=== PATIENT | male | born 1995 | race Hispanic/Latino ===

== ENCOUNTER 2023-12-27 20:51 | Emergency (ER) | payer OTHER, SELFPAY ==
[2023-12-27 20:55] VITALS: BP 113/72
[2023-12-27 21:04] VITALS: BMI 30.4
[2023-12-27 21:18] LABS: % Eosinophils 6.3 % (0-6); % Immature Granulocytes 0.2 % (0-0.5); % Lymphocytes 35.2 % (20.5-51.1); % Monocytes 9.7 % (1.7-9.3); % Neutrophils 47.6 % (42.2-75.2); Absolute Basophils 0.1 10^3/uL (0-0.2); Absolute Eosinophils 0.3 10^3/uL (0-0.7); Absolute Lymphocytes 1.7 10^3/uL (1.2-3.4); Absolute Monocytes 0.5 10^3/uL (0.1-0.6); Absolute Neutrophils 2.4 10^3/uL (1.4-6.5); Hemoglobin 10.8 g/dL (13.0-18.0); Mean Corpuscular Hgb 29.2 pg (27.0-31.0); Mean Corpuscular Volume 81.1 fL (80.0-94.0); Mean Platelet Volume 9.7 fL (7.4-10.4); Nucleated Red Blood Cells % 0 % (-); Platelet Count 289 10^3/uL (130-400)
[2023-12-27 21:34] LABS: ALT (SGPT) 23 U/L (0-50); AST (SGOT) 34 U/L (17-59); Albumin 4.4 g/dl (3.5-5.0); Alkaline Phosphatase 57 U/L (38-126); Blood Urea Nitrogen 14 mg/dl (9-20); Calcium 9.7 mg/dl (8.4-10.2); Carbon Dioxide 26 mmol/L (22-30); Chloride 100 mmol/L (98-107); Estimated Creatinine Clearance 111 ml/min; Glucose 114 mg/dl (70-99); Potassium 4.2 mmol/L (3.5-5.1); Sodium 138 mmol/L (135-145); Total Bilirubin 0.2 mg/dl (0.2-1.3); Total Protein 7.5 g/dl (6.3-8.2); eGFR > 60.00
--- NOTE | 2023-12-27 21:52 | ED.GENMED ---
History of Present Illness
General
Chief Complaint: Change in Mental Status
Time Seen by Provider: 12/27/23 21:08
History of Present Illness
History of Present Illness:
28-year-old male without significant past medical history presenting from correction[facility] facility for change in mental status. Patient arrives with medics and [employer] guards, note prior to arrival, patient seemed lethargic. Medics noted dilated
pupils on their arrival, administered Narcan without response. They subsequently gave fluids. On arrival, report the patient is more responsive. Patient denies any ingestion of drugs. He denies any present complaint such as chest pain,
difficulty breathing, abdominal pain. 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 Denies difficulty swallowing. Denies any additional ingestion. Denies additional acute
medical complaints
Phy Exam
Physical Exam
Physical Exam:
General: Well-appearing, no clinical signs of dehydration, nontoxic and in no acute distress
HEENT: protecting airway, pupils equal and reactive bilaterally, no oropharyngeal swelling or edema
Neck: appears supple
CV: Normal heart rate, regular rhythm
Resp: No accessory muscle use, no increased work of breathing, lungs clear to auscultation bilaterally
Abd: Soft and non-distended, no tenderness to palpation
Extremities: No deformities, no swelling, no erythema
Neuro: alert, no focal neurologic deficit
: deferred
Rectal: deferred
Psych: Normal affect
Skin: Intact
Course
Orders/Labs/Results
Orders:
Orders
12/27/23 21:12
Add On- LAB Urgent
Tests Added?: tylenol and salicylate level
Acetaminophen Urgent
Comment: ADD ON
Complete Blood Count/With Diff Urgent
Comprehensive Metabolic Panel Urgent
Salicylate Urgent
Comment: ADD ON
Urine Drug Abuse Screen Urgent
12/27/23 21:55
Electrocardiogram (*1) Stat
Reason for Study: QTc Monitoring
Electrocardiogram (*1) Urgent
EKG- Treatment ONCE
Abnormal Lab Results
12/27/23
21:12
RBC 3.70 L 10^6/uL
(4.70-6.10)
Hgb 10.8 L g/dL
(13.0-18.0)
Hct 30.0 L %
(39.0-52.0)
Monocytes % 9.7 H %
(1.7-9.3)
Eosinophils % 6.3 H %
(0-6)
Glucose 114 H mg/dl
(70-99)
Salicylates < 1.0 L mg/dl
(2.0-20.0)
Acetaminophen < 10 L ug/ml
(10-30)
12/27/23 21:12
12/27/23 21:12
Vital Signs
Initial and Last Documented VS:
Initial Vital Signs
Temp Pulse Resp BP Pulse Ox
98.4 F 77 12 113/72 96
12/27/23 20:55 12/27/23 20:55 12/27/23 20:55 12/27/23 20:55 12/27/23 20:55
Last Documented Vital Signs
Temp Pulse Resp BP Pulse Ox
98.4 F 70 12 104/86 96
12/27/23 20:55 12/28/23 00:00 12/27/23 20:55 12/28/23 00:00 12/27/23 22:00
MDM/Problems Addressed
MDM/Problems Addressed:
28-year-old male without significant past medical history presenting for change in mental status from correctional facility. Vital signs are normal.
Patient is well-appearing on examination, nontoxic. He is awake, alert, oriented. No focal neurologic deficits. Patient answering questions appropriately. No present toxidrome symptoms. Patient afebrile, no systemic symptoms with lower
suspicion for infectious process. No focal neurologic deficits, without concern for central neurologic process. Unclear etiology of patient's preceding symptoms. However at this time patient is asymptomatic and hemodynamically stable. Will
screen with laboratory analysis and EKG. 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 pH of this chemical is 6.5-7.5. Will discuss with poison control
22:00 -Per poison control, recommending 4-hour observation, p.o. trial, and monitoring for nausea and vomiting, with plan for supportive therapy if able to tolerate p.o. after period of observation
01:00 -patient with 4-hour observation period, tolerated p.o. without difficulty. No observed vomiting. Remains hemodynamically stable, normal laboratory analysis. Feel stable for discharge. Return precautions discussed and patient verbalized
understanding
*Critical Care Note
Total Time (30-74mins, 75-104mins- exclusive of procedures): Not Applicable
ED Attending Note
-
Portions of this chart may have been created with voice recognition software.� Occasional wrong word or��sound alike� substitutions may have occurred due to the inherent limitations of voice recognition software.
Discharge Plan
Departure
Prescriptions:
No Action
losartan [Cozaar] 50 mg Tablet
50 mg PO DAILY
olanzapine 5 mg Tablet
5 mg PO BID
nortriptyline 25 mg Capsule
25 mg PO HS
amlodipine 10 mg Tablet
10 mg PO DAILY
ibuprofen 400 mg Tablet
400 mg PO BID PRN (Reason: pain)
omeprazole 20 mg Capsule,Delayed Release(Dr/Ec)
20 mg PO HS
sertraline 50 mg Tablet
75 mg PO DAILY
Sublocade 300 mg/1.5 mL Solution, Extended Rel Syringe
300 mg SC QMONTH
albuterol sulfate
0.5 % inhalation QIDPRN PRN (Reason: sob)
Referrals:
UNKNOWN - PT NOT,[facility] [Family Provider] -
Interventions
Interventions:
*Risk Screen - Suicide Last Done: 12/27/23 20:55
*General Assessment Last Done: 12/27/23 20:55
*Neglect/Abuse Screening Last Done: 12/27/23 20:55
ED- Fall Risk Assessment Last Done: 12/27/23 21:13
*ED COVID-19 Vaccine History Last Done: 12/27/23 20:55
ED- Pulmonary Assessment Last Done: 12/27/23 21:13
ED- Neurological Assessment Last Done: 12/27/23 21:13
ED- Cardiac Assessment Last Done: 12/27/23 21:13
Discharge Date and Time
Print Language: DOMINICAN
[2023-12-27 21:54] LABS: Acetaminophen < 10 ug/ml (10-30); Salicylate < 1.0 mg/dl (2.0-20.0)
[2023-12-27 22:00] VITALS: BP 108/75
[2023-12-27 23:00] VITALS: BP 115/78
[2023-12-28] VITALS: BP 104/86
[2023-12-28 01:00] VITALS: BP 112/76
== END 2023-12-28 01:25 ==
LOC: EMR 20:51
PROVIDERS: EMERGENCY PHYSICIAN Student in an Organized Health Care Education/Training Program
DX: R41.82 Altered mental status, unspecified (principal)
CPT/HCPCS: 99284; 80053; 80143; 80179; 85025; 93005

== ENCOUNTER 2024-01-21 18:53 | Emergency (ER) | payer OTHER, SELFPAY ==
[2024-01-21 18:55] VITALS: BMI 31.3
[2024-01-21 18:58] VITALS: BP 118/70
[2024-01-21 19:00] VITALS: BP 101/82
[2024-01-21 20:00] VITALS: BP 121/73
--- NOTE | 2024-01-21 20:25 | ED.GENMED ---
History of Present Illness
General
Chief Complaint: Blood Pressure Problem
Source: patient and other ([employer] guards)
Time Seen by Provider: 01/21/24 19:14
History of Present Illness
History of Present Illness:
28-year-old male who presents from [facility]. Patient states 'I fell out'. He states he thinks it was related to his blood pressure. There is a report that maybe he was given Narcan but snf guards are unable to confirm. [employer]-Term
guards also states that there was a story that he was in someone else's cell and possibly using drugs. The patient denies this. He currently denies any symptoms and just feels a bit tired. No chest pain. No abdominal pain. No back pain.
Past History
Past History
ED Past Medical History: HTN and Psychiatric (Schizophrenia, PTSD, depression)
Phy Exam
Physical Exam
Physical Exam:
CONSTITUTIONAL Patient alert and oriented to person, place and time. Well-appearing. Vital signs reviewed.
HEAD atraumatic, normocephalic.
EYES eyelids normal to inspection, Pupils equally round and reactive to light, Extraocular muscles intact, Conjunctiva normal, Sclera normal.
NECK normal range of motion, Trachea midline, no jugular venous distention.
RESPIRATORY CHEST No respiratory distress noted, Chest expansion equal, Bilateral breath sounds clear.
CARDIOVASCULAR regular rate and rhythm, Heart sounds normal.
ABDOMEN abdomen nontender, Bowel sounds normal. No distention.
BACK normal inspection, no obvious deformities
UPPER EXTREMITY range of motion normal, Motor strength normal, no cyanosis, no edema.
LOWER EXTREMITY range of motion normal, Motor strength normal, no cyanosis, no edema.
NEURO Speech normal, No focal motor deficits, Blanca coma scale 15, Memory normal, Cranial Nerves intact to screening exam.
SKIN skin warm, dry, and normal in color.
Course
Orders/Labs/Results
Orders:
Orders
01/21/24 20:25
Electrocardiogram (*1) Urgent
Reason for Study: Syncope
EKG- Treatment ONCE
01/21/24 20:33
Alcohol Urgent
Basic Metabolic Panel Urgent
Complete Blood Count/With Diff Urgent
01/21/24 21:03
Fentanyl, Urine Urgent
Urine Drug Abuse Screen Urgent
Date Specimen was Collected: 01/21/24
Time Specimen was Collected: 20:54
Abnormal Lab Results
01/21/24 01/21/24
20:33 21:03
RBC 3.21 L 10^6/uL
(4.70-6.10)
Hgb 9.5 L g/dL
(13.0-18.0)
Hct 26.1 L %
(39.0-52.0)
Monocytes % 10.2 H %
(1.7-9.3)
Glucose 102 H mg/dl
(70-99)
Calcium 8.3 L mg/dl
(8.4-10.2)
Ur Buprenorphine Positive H
(Negative)
Ur Tricyclics Screen Positive H
(Negative)
01/21/24 20:33
01/21/24 20:33
Vital Signs
Initial and Last Documented VS:
Initial Vital Signs
Temp Pulse Resp Pulse Ox
98.3 F 69 18 97
01/21/24 18:55 01/21/24 18:55 01/21/24 18:55 01/21/24 18:55
Last Documented Vital Signs
Temp Pulse Resp BP Pulse Ox
98.3 F 78 10 101/82 100
01/21/24 18:55 01/21/24 19:15 01/21/24 18:59 01/21/24 19:00 01/21/24 19:15
*Pulse Oximetry
Patient hypoxic: no
*Critical Care Note
Total Time (30-74mins, 75-104mins- exclusive of procedures): Not Applicable
Patient Management
Escalation/DeEscalation of care consider admission/obs:
Patient appears well. Has a normal exam. Labs grossly unremarkable. Anemia and hemoglobin noted but mild. Has history impassive hemoglobin 10.8. UDS noted. It is reported that he was given Narcan and that he was possibly in someone else's room
doing drugs. Okay for discharge
ED Attending Note
-
Portions of this chart may have been created with voice recognition software.� Occasional wrong word or��sound alike� substitutions may have occurred due to the inherent limitations of voice recognition software.
Discharge Plan
Departure
Patient Disposition: Home (Routine Discharge)
Date of Disposition: 01/21/24
Time of Disposition: 22:00
Patient with high blood pressure during this ER visit?: No
Discharge Problem:
Acute alteration in mental status
Prescriptions:
No Action
losartan [Cozaar] 50 mg Tablet
50 mg PO DAILY
olanzapine 5 mg Tablet
5 mg PO BID
nortriptyline 25 mg Capsule
25 mg PO HS
amlodipine 10 mg Tablet
10 mg PO DAILY
ibuprofen 400 mg Tablet
400 mg PO BID PRN (Reason: pain)
omeprazole 20 mg Capsule,Delayed Release(Dr/Ec)
20 mg PO HS
sertraline 50 mg Tablet
75 mg PO DAILY
Sublocade 300 mg/1.5 mL Solution, Extended Rel Syringe
300 mg SC QMONTH
albuterol sulfate
0.5 % inhalation QIDPRN PRN (Reason: sob)
Referrals:
[facility] [Family Provider] -
Activity Restrictions/Additional Instructions:
Return immediately for changes in mentation, fevers, vomiting, weakness of any kind or any other concerns. Please see medical for follow-up in the next 2 days.
Interventions
Interventions:
*Risk Screen - Suicide Last Done: 01/21/24 18:55
*General Assessment Last Done: 01/21/24 18:55
*Neglect/Abuse Screening Last Done: 01/21/24 18:55
ED- Fall Risk Assessment Last Done: 01/21/24 18:55
*ED COVID-19 Vaccine History Last Done: 01/21/24 18:55
ED- Cardiac Assessment Last Done: 01/21/24 18:55
ED- Neurological Assessment Last Done: 01/21/24 18:55
ED- Pulmonary Assessment Last Done: 01/21/24 18:55
Discharge Date and Time
Print Language: GERMAN
[2024-01-21 20:41] LABS: % Basophils 0.6 % (0-2); % Eosinophils 2.9 % (0-6); % Immature Granulocytes 0.4 % (0-0.5); % Lymphocytes 24.2 % (20.5-51.1); % Monocytes 10.2 % (1.7-9.3); % Neutrophils 61.7 % (42.2-75.2); Absolute Eosinophils 0.2 10^3/uL (0-0.7); Absolute Lymphocytes 1.2 10^3/uL (1.2-3.4); Absolute Monocytes 0.5 10^3/uL (0.1-0.6); Absolute Neutrophils 3.2 10^3/uL (1.4-6.5); Hematocrit 26.1 % (39.0-52.0); Hemoglobin 9.5 g/dL (13.0-18.0); Mean Corp Hgb Conc. 36.4 g/dL (33.0-37.0); Mean Corpuscular Hgb 29.6 pg (27.0-31.0); Mean Corpuscular Volume 81.3 fL (80.0-94.0); Mean Platelet Volume 9.9 fL (7.4-10.4); Nucleated Red Blood Cells % 0 % (-); Platelet Count 224 10^3/uL (130-400); Red Blood Cell Count 3.21 10^6/uL (4.70-6.10); Red Cell Dist. Width 12.6 % (11.5-14.5); White Blood Cell Count 5.1 10^3/uL (4.8-10.8)
[2024-01-21 21:00] VITALS: BP 121/79
[2024-01-21 21:10] LABS: Alcohol < 10 mg/dl; Blood Urea Nitrogen 14 mg/dl (9-20); Calcium 8.3 mg/dl (8.4-10.2); Carbon Dioxide 22 mmol/L (22-30); Chloride 107 mmol/L (98-107); Estimated Creatinine Clearance 122 ml/min; Glucose 102 mg/dl (70-99); Potassium 3.7 mmol/L (3.5-5.1); Sodium 138 mmol/L (135-145); eGFR > 60.00
[2024-01-21 21:24] LABS: Amphetamines Negative (Negative); Barbiturates Negative (Negative); Benzodiazepines Negative (Negative)
[2024-01-21 21:25] LABS: Buprenorphine Positive (Negative); Cocaine Negative (Negative); Marijuana Negative (Negative); Methadone Negative (Negative); Methamphetamines Negative (Negative); Opiates Negative (Negative); Phencyclidine Negative (Negative); Tricyclic Antidepressants Positive (Negative)
[2024-01-21 21:44] LABS: Fentanyl, Urine Negative (Negative)
[2024-01-21 22:00] VITALS: BP 119/93
== END 2024-01-21 22:38 | disposition home or self-care (01) ==
LOC: EMR 18:53
PROVIDERS: EMERGENCY PHYSICIAN Emergency Medicine
DX: R41.82 Altered mental status, unspecified (principal); I10 Essential (primary) hypertension; F20.9 Schizophrenia, unspecified; F43.10 Post-traumatic stress disorder, unspecified; F32.A Depression, unspecified
CPT/HCPCS: 99283; 80048; 80306; 80307; 82077; 85025